=== PATIENT | female | born 1990 | race Caucasian/White ===

== ENCOUNTER 2024-04-02 21:56 | Emergency (ER) | payer OTHER ==
[~2024-04-02] VITALS: Ht 167.6 cm; Wt 64.0 kg
[2024-04-02 22:10] VITALS: BP 114/89; TEMP 98.4; O2SAT 100
[2024-04-02 22:15] VITALS: PULSE 95; O2SAT 96
== END 2024-04-02 23:18 | disposition left against medical advice (07) ==
LOC: ER 21:56
DX: R51.9 Headache, unspecified (principal); Z53.21 Procedure and treatment not carried out due to patient leaving prior to being seen by health care provider